=== PATIENT | female | born 1950 | race Caucasian/White ===

== ENCOUNTER 2022-11-26 13:45 | Emergency (ER) | payer MEDICARE, OTHER ==
[~2022-11-26] VITALS: Ht 167.6 cm; Wt 59.0 kg
[2022-11-26 13:54] VITALS: O2SAT 100
[2022-11-26] MEDS ORDERED: ACETAMINOPHEN 325MG TABLET PO ONE (14:15)
[2022-11-26] MEDS ORDERED: KETOROLAC 60MG/2ML VIAL IM ONE (14:15)
[2022-11-26 14:36] LABS: CLARITY URINE CLEAR (CLEAR); COLOR URINE YELLOW (YELLOW); GLUCOSE URINE NEGATIVE (NEGATIVE); KETONES URINE 1+ (NEGATIVE); LEUKOCYTE ESTERASE URINE 1+ (NEGATIVE); NITRITE URINE NEGATIVE (NEGATIVE); OCCULT BLOOD URINE NEGATIVE (NEGATIVE); PH URINE 5.5 (4.5-8.0); PROTEIN URINE NEGATIVE (NEGATIVE); SPECIFIC GRAVITY URINE 1.008 (1.005-1.030); UROBILINOGEN URINE 0.2 E.U./dL (0.2-1.0)
[2022-11-26 14:47] LABS: HEMATOCRIT. 39.1 % (36.0-48.0); HEMOGLOBIN. 13.4 g/dL (12.0-16.0); MEAN CORPUSCULAR HEMOGLOBIN 34.5 pg (28.0-32.0); MEAN CORPUSCULAR HGB CONC 34.2 g/dL (31.0-37.0); MEAN CORPUSCULAR VOLUME 101.1 fL (81.0-99.0); MEAN PLATELET VOLUME 7.4 fl (7.4-10.4); PLATELET 209 x1000/uL (130-400); RED BLOOD CELL COUNT 3.87 mill/uL (4.2-5.4); RED CELL DISTRIBUTION WIDTH 13.3 % (11.6-14.6); WHITE BLOOD COUNT 2.8 x1000/uL (4.5-11.0)
[2022-11-26 14:48] LABS: DIFFERENTIAL COMMENT 1
[2022-11-26 14:50] LABS: CHLORIDE 102 mEq/L (98-107); INDEX HEMOLYSI 1 (1-3); INDEX ICTERIC 1 (1-4); INDEX LIPEMIC 1 (1-3); POTASSIUM 3.8 mEq/L (3.5-5.1); SODIUM 137 mEq/L (136-145)
[2022-11-26 14:57] LABS: BACTERIA URINE TRACE; SQUAMOUS EPITHELIAL CELL URINE 1+ /lpf (RARE/1+)
[2022-11-26 14:58] LABS: WBC URINE 0-2 /hpf (0-2)
[2022-11-26 14:59] LABS: ALANINE AMINOTRANSFERASE 27 IU/L (13-61); ALBUMIN 4.1 g/dL (3.4-5.0); ASPARTATE AMINOTRANSFERASE 19 IU/L (15-37); CALCIUM 8.8 mg/dL (8.5-10.1); CARBON DIOXIDE 27 mEq/L (21-32); CREATININE 0.5 mg/dL (0.6-1.3); GLUCOSE 102 mg/dL (70-105); PROTEIN TOTAL 7.1 g/dL (6.0-8.3); UREA NITROGEN BLOOD 9 mg/dL (7-21)
[2022-11-26 14:59] LABS: RBC URINE NONE SEEN /hpf (0-2)
[2022-11-26 15:24] LABS: PLATELET ESTIMATE NORMAL
[2022-11-26] MEDS ORDERED: HYDROCODONE/ACETAMINOPHEN 10/325MG TABLET PO NR (16:30)
[2022-11-26] MEDS ORDERED: HYDR-4001 MT (16:33)
[2022-11-26] MEDS ORDERED: IBUP-2030 MT (16:34)
[2022-11-26 17:15] VITALS: BP 136/64; PULSE 74; RESP 16; TEMP 98.9
== END 2022-11-26 17:17 | disposition home or self-care (01) ==
LOC: ER 14:02
DX: R10.9 Unspecified abdominal pain (principal); Q44.6 Cystic disease of liver; Z90.710 Acquired absence of both cervix and uterus; Z98.890 Other specified postprocedural states
CPT/HCPCS: 99285; 74176; 80053; 81003; 83690; 85025; 85379; 36415; 96372; J1885